=== PATIENT | female | born 1990 | race Caucasian/White ===

== ENCOUNTER 2016-06-19 16:44 | Inpatient (IN) | payer OTHER ==
[~2016-06-19] VITALS: Ht 175.3 cm; Wt 97.5 kg
[2016-06-19] MEDS ORDERED: PROVENTIL2.5 MG/3 M INH (19:27)
[2016-06-19] MEDS ORDERED: VENTOLIN HFA18 GM INH (19:28)
[2016-06-19] MEDS ORDERED: PRENATAL TABLE1 EAC1 PO (19:28)
[2016-06-21] MEDS ORDERED: MOTRIN800 MG PO (08:27)
[2016-06-21] MEDS ORDERED: COLACE100 MG PO (08:28)
[2016-06-21] MEDS ORDERED: DERMOPLAST PAIN78 GM TOP (08:28)
[2016-06-21] MEDS ORDERED: LAN-O-SOOTHE7 GM TOP (08:29)
== END 2016-06-21 14:00 | disposition short-term general hospital (02) | DRG 775 ==
LOC: LDRIP 16:44
PROVIDERS: ADMIT Family Medicine
PROC: 10E0XZZ Delivery of Products of Conception, External Approach (ICD-10-PCS; principal; 2016-06-20)
PROC: 10907ZC Drainage of Amniotic Fluid, Therapeutic from Products of Conception, Via Natural or Artificial Opening (ICD-10-PCS; principal; 2016-06-20)
DX: O71.82 Other specified trauma to perineum and vulva (principal); Z3A.39 39 weeks gestation of pregnancy; Z37.0 Single live birth
CPT/HCPCS: J2590; J3010